=== PATIENT | female | born 1990 | race Caucasian/White ===

== ENCOUNTER 2023-04-05 17:01 | Outpatient (OUT) | payer BC, SELFPAY ==
--- NOTE | 2023-04-05 17:17 | US_ITS ---
[address] [address] Patient Name: REYNOLD QUEZADA MRN: [id number] date: 1990 Sex: F Assigned Patient Location: US Current Patient Location: Accession/Order Number: [id number] Exam Date: 04/05/2023 17:17 Report Date: 04/06/2023 15:08 At the request of: YAKOV ARNDT Procedure: US OB BPP w non-stress EXAMINATION: US OB BPP w non-stress HISTORY: Z03.75 SUSPECTED SHORTENING OF CERVIX NOT FOUND COMPARISON: No relevant comparison available. TECHNIQUE: Ultrasound biophysical profile was performed in the radiology department. BREATHING MOVEMENTS: 2.0 GROSS BODY MOVEMENTS: 2.0 TONE: 2.0 QUALITATIVE AMNIOTIC FLUID VOLUME: 2.0 PRESENTATION: BREECH HEART RATE: 165.6 bpm bpm. AMNIOTIC FLUID VOLUME: 10.0 cm GESTATIONAL AGE: 31 weeks 2 days CONCLUSION: Total biophysical profile score 8.0. Electronically authenticated by: MARY LOU AZAR Date: 04/06/2023 15:08
--- NOTE | 2023-04-05 17:18 | US_ITS ---
[address] [address] Patient Name: REYNOLD QUEZADA MRN: [id number] date: 1990 Sex: F Assigned Patient Location: US Current Patient Location: Accession/Order Number: [id number] Exam Date: 04/05/2023 17:17 Report Date: 04/06/2023 15:13 At the request of: YAKOV ARNDT Procedure: US OB growth EXAMINATION: US OB growth HISTORY: O23.849 SIZE INCONSISTENT WITH DATES COMPARISON: Ultrasound transvaginal 10/25/2022 FINDINGS: Heart Rate: 165.6 bpm Number: 1.0 Position: BREECH Amniotic Fluid Volume: 11.1 cm Maximum Vertical Pocket: 4.6 cm BIOMETRY: BPD: 8.0 cm cm; 32 weeks 2 days HC: 29.1 cmcm; 32 weeks 0 days AC: 27.2 cm cm; 31 weeks 2 days FL: 5.9 cm cm; 30 weeks 6 days EFW: 1742.1 grams; 39% FL/AC: 21.8 FL/BPD: 73.6 HC/AC: 1.1 GESTATIONAL AGE: Age by EDC: 31 weeks 2 days JUSTIN by EDC: 06/05/2023 Age by US: 31 weeks 4 days JUSTIN by US: 06/03/2023 IMPRESSION: 1. Single live intrauterine with growth detailed above. Electronically authenticated by: MARY LOU AZAR Date: 04/06/2023 15:13
[2023-04-05 18:10] VITALS: BP 112/70; PULSE 73; RESP 16; TEMP 36.9
== END 2023-04-05 18:52 | disposition home or self-care (01) ==
LOC: US 17:55 → FBC 17:58
PROVIDERS: PCP Internal Medicine; Visit Provider Obstetrics & Gynecology
DX: O26.843 Uterine size-date discrepancy, third trimester (principal); Z03.75 Encounter for suspected cervical shortening ruled out; Z3A.31 31 weeks gestation of pregnancy
CPT/HCPCS: 59025; 76816; 76818

== ENCOUNTER 2023-05-09 | Outpatient (REF) | payer BC, SELFPAY | END 2023-05-09 00:01 | disposition home or self-care (01) | LOC: LAB | PROVIDERS: PCP Internal Medicine; Visit Provider Physician Assistant | DX: Z34.93 Encounter for supervision of normal pregnancy, unspecified, third trimester (principal) | CPT/HCPCS: 87081 ==

== ENCOUNTER 2023-05-30 05:29 | Inpatient (IN) | payer BC, SELFPAY ==
[2023-05-30] VITALS (31 sets, daily range): BP systolic 110–144; BP diastolic 50–94; PULSE 58–75; RESP 16–24; TEMP 36.3–37.3; O2SAT 98–100
[2023-05-30] MEDS: 0.9 % SODIUM CHLORIDE 1,000 ML 1000 ML IV (05:58)
[2023-05-30 06:32] LABS: Basophils Absolute Auto 0.1 10^3/uL (0.0-0.1); Basophils Percent Auto 0.4 % (0.2-2.0); Eosinophils Absolute Auto 0.2 10^3/uL (0.0-0.7); Eosinophils Percent Auto 1.4 % (0.9-7.0); Hematocrit 34.1 % (36.0-48.0); Hemoglobin 10.7 g/dL (12.0-16.0); Immature Granulocytes Abs Auto 0.22 10^3/uL (0.00-0.03); Immature Granulocytes Pct Auto 1.7 % (0.0-0.5); Lymphocytes Percent Auto 15.1 % (20.5-60.0); Mean Corpuscular HGB Conc 31.4 g/dL (29.9-35.2); Mean Corpuscular Hemoglobin 20.9 pg (26.7-34.0); Mean Corpuscular Volume 66.7 fL (81.0-99.0); Monocytes Absolute Auto 1.1 10^3/uL (0.3-0.8); Monocytes Percent Auto 8.6 % (1.7-12.0); Neutrophils Absolute Auto 9.7 10^3/uL (1.4-6.5); Neutrophils Percent Auto 72.8 % (43.0-75.0); Platelet Count 263 10^3/uL (150-450); Red Blood Count 5.11 10^6/uL (4.20-5.40); Red Cell Distribution Width 17.5 % (11.0-15.0); White Blood Count 13.3 10^3/uL (4.0-11.0)
[2023-05-30 06:41] LABS: Amphetamine Screen Urine NEGATIVE (NEGATIVE); Barbiturates Screen Urine NEGATIVE (NEGATIVE); Benzodiazepines Screen Urine NEGATIVE (NEGATIVE); Buprenorphine Screen Urine NEGATIVE (NEGATIVE); Cannabinoid Screen Urine NEGATIVE (NEGATIVE); Cocaine Screen Urine NEGATIVE (NEGATIVE); Methadone Screen Urine NEGATIVE (NEGATIVE); Methamphetamines Screen Urine NEGATIVE (NEGATIVE); Opiate Screen Urine NEGATIVE (NEGATIVE); Oxycodone Screen Urine NEGATIVE (NEGATIVE); Phencyclidine Screen Urine NEGATIVE (NEGATIVE); Tricyclic Antidepressant Urine NEGATIVE (NEGATIVE)
[2023-05-30] MEDS: CEFAZOLIN SODIUM/DEXTROSE 2 GM/50 ML PIGGYBACK IV (06:56)
[2023-05-30] MEDS: 0.9 % SODIUM CHLORIDE 1,000 ML 125 ML IV ×2 (07:45→14:46)
--- NOTE | 2023-05-30 07:52 | W.PC.ACHO ---
Registration Status: ADM IN Primary Language: Kyrgyz Preferred Language: Kyrgyz Active Medications Generic Name Dose Route Start Last Admin Trade Name Freq PRN Reason Stop Dose Admin Sodium Chloride 1,000 mls @ 125 mls/hr 05/30/23 05:45 Sodium Chloride 0.9% 1,000 Ml IV .Q8H DAYAMI Consults Category Date Time Status Consult to Anesthesiology Routine Cons 05/30/23 Ordered IV Insertion/Site Date of IV Line Insertion [20g 05/30/23 left Hand] IV Insertion Time [20g left 05:45 Hand] Neurology Patient orientation (short person,place,time,situation list)
[2023-05-30] MEDS: LACTATED RINGER'S SOLUTION 1,000 ML 50 ML IV (08:14)
[2023-05-30] MEDS: ONDANSETRON PF 4 MG/2 ML VIAL IV (09:25)
[2023-05-30] MEDS: ONDANSETRON 4 MG RAPDIS TABLET PO (15:38)
[2023-05-30] MEDS: KETOROLAC TROMETHAMINE 30 MG/ML VIAL IVP ×2 (15:38→21:21)
[2023-05-30] MEDS: CEFAZOLIN SODIUM/DEXTROSE,ISO 2 GM/50 ML PIGGYBACK IV (15:39)
--- NOTE | 2023-05-30 16:31 | PC.NURSE ---
Powell cath dc'd at this time d/t adequste output and pt. up and ambulated without any issues at this time as well.
[2023-05-31] VITALS (8 sets, daily range): BP systolic 99–119; BP diastolic 58–72; PULSE 65–67; RESP 16; TEMP 36.6–37.1; O2SAT 98
[2023-05-31] MEDS: KETOROLAC TROMETHAMINE 30 MG/ML VIAL IVP (03:06)
[2023-05-31 06:41] LABS: Hematocrit 28.9 % (36.0-48.0); Mean Corpuscular HGB Conc 31.1 g/dL (29.9-35.2); Mean Corpuscular Hemoglobin 21.1 pg (26.7-34.0); Mean Corpuscular Volume 67.8 fL (81.0-99.0); Mean Platelet Volume 11.3 fL (9.5-13.5); Platelet Count 233 10^3/uL (150-450); Red Blood Count 4.26 10^6/uL (4.20-5.40); Red Cell Distribution Width 17.3 % (11.0-15.0); White Blood Count 15.2 10^3/uL (4.0-11.0)
--- NOTE | 2023-05-31 07:35 | W.PC.ACHO ---
Registration Status: ADM IN Primary Language: Andorran Preferred Language: Andorran Active Medications Generic Name Dose Route Start Last Admin Trade Name Freq PRN Reason Stop Dose Admin Al Hydroxide/Mg Hydroxide 2,400 mg 05/30/23 09:14 Magnesium Hydroxide 2,400 Mg/10 Ml Oral.Susp PO Q6H PRN Dyspepsia Docusate Sodium 100 mg 05/31/23 09:00 Docusate Sodium 100 Mg Capsule PO BID DAYAMI Sodium Chloride 1,000 mls @ 125 mls/hr 05/30/23 05:45 05/30/23 14:46 Sodium Chloride 0.9% 1,000 Ml IV 125 mls/hr .Q8H DAYAMI Administration Lactated Ringer's 1,000 mls @ 50 mls/hr 05/30/23 08:15 05/30/23 08:14 Lactated Ringers IV 50 mls/hr .Q20H DAYAMI Administration Ibuprofen 800 mg 05/30/23 09:14 Ibuprofen 400 Mg Tablet PO Q8H PRN Pain Ketorolac Tromethamine 30 mg 05/30/23 09:14 05/31/23 03:06 Ketorolac Tromethamine 30 Mg/Ml Vial IVP 06/01/23 09:15 30 mg Q6H PRN Administration Pain Ondansetron HCl 4 mg 05/30/23 09:14 05/30/23 09:25 Ondansetron Pf 4 Mg/2 Ml Vial IV 4 mg Q6H PRN Administration Nausea And Vomiting Ondansetron HCl 4 mg 05/30/23 09:14 05/30/23 15:38 Ondansetron 4 Mg Rapdis Tablet PO 4 mg Q6H PRN Administration Nausea And Vomiting Oxycodone/Acetaminophen 1 each 05/30/23 09:14 Oxycodone Hcl/Acetaminophen 5-325 Mg Tablet PO Q4H PRN Pain Oxycodone/Acetaminophen 2 each 05/30/23 09:14 Oxycodone Hcl/Acetaminophen 5-325 Mg Tablet PO Q4H PRN Pain Simethicone 80 mg 05/30/23 09:14 Simethicone 80 Mg Tab.Chew PO QID PRN Abdominal Distention Diet Category Date Time Status Regular Consistency Diet Diet 05/30/23 Lunch Active Respiratory Lung sounds [Throughout] clear Lung sounds [Throughout] clear Lung sounds [Throughout] clear Lung sounds [Throughout] clear Lung sounds [Throughout] clear Lung sounds [Throughout] clear Lung sounds [Throughout] clear Lung sounds [Throughout] clear Lung sounds [Throughout] clear Lung sounds [Throughout] clear Lung sounds [Throughout] clear Lung sounds [Throughout] clear Lung sounds [Throughout] clear Pulse Oximetry 98 Pulse Oximetry 100 Pulse Oximetry 100 Pulse Oximetry 100 Pulse Oximetry 100 Pulse Oximetry 100 Pulse Oximetry 100 Pulse Oximetry 100 Pulse Oximetry 98 Pulse Oximetry 99 Pulse Oximetry 99 Pulse Oximetry 100 Pulse Oximetry 98 Pulse Oximetry 99 Pulse Oximetry 100 Oxygen Delivery Method Room Air Oxygen Delivery Method Room Air Oxygen Delivery Method Room Air Oxygen Delivery Method Room Air Oxygen Delivery Method Room Air Oxygen Delivery Method Room Air Oxygen Delivery Method Room Air Oxygen Delivery Method Room Air Oxygen Delivery Method Room Air Oxygen Delivery Method Room Air Cardiology Heart Sounds Strong,Regular Heart Sounds Strong,Regular Heart Sounds Strong,Regular Heart Sounds Strong,Regular Heart Sounds Strong,Regular Heart Sounds Strong,Regular Catheter Urinary Catheter Date of 05/30/23 Insertion [Urethral] Urinary Catheter Date of 05/30/23 Insertion [Urethral] Urinary Catheter Date of 05/30/23 Insertion [Urethral]
[2023-05-31] MEDS: DOCUSATE SODIUM 100 MG CAPSULE PO ×2 (08:02→22:08)
[2023-05-31] MEDS: SIMETHICONE 80 MG TAB.CHEW PO ×2 (08:02→16:44)
--- NOTE | 2023-05-31 08:07 | P.OBPN_ITS ---
OB - PN: Subj Subjective Patient comments: no complaints [place] status: doing well feeding status: exclusively bottle feeding Exam Constitutional Vital Signs, click to edit/add: Last Vital Signs Temp 98.8 F 05/31/23 07:55 Pulse 66 05/31/23 07:52 Resp 16 05/31/23 07:52 BP 119/72 05/31/23 07:55 Pulse Ox 98 05/30/23 19:57 O2 Del Method Room Air 05/30/23 19:57 Eye General eye: normal appearance of both eyes Neck & C-Spine Common normals: full ROM Lymph Lymphatic: no lymphadenopathy noted Respiratory Common normals: normal respiratory effort and no retractions Effort & inspection: able to speak in complete sentences Auscultation: clear to auscultation bilaterally Cardio Common normals: regular rate, regular rhythm and no murmurs Rate: regular rate Rhythm: regular rhythm GI Common normals: Normal to inspection, nondistended, normoactive bowel sounds present Common normals: no CVA tenderness Back & Pelvis Common normals: no CVA tenderness Extremity Common normals: normal to inspection Neuro Common normals: oriented x3 Sensorium/orientation: awake, alert, oriented to person, oriented to place and oriented to time Psych Attitude: calm Results Labs Labs: Short CBC 05/31/23 Range/Units 06:30 WBC 15.2 H (4.0-11.0) 10^3/uL Hgb 9.0 L (12.0-16.0) g/dL Hct 28.9 L (36.0-48.0) % Plt Count 233 (150-450) 10^3/uL OB - PN: A/P Plan - day: 1 Plan: routine postop care Time Spent with Patient Time: Total time spent is greater than 50% in coordination of care (as documented) at patient's floor/unit and/or counseling patient: Total time spent with greater than 50% in coordination of care (as documented) at patient's floor/unit and/or counseling patient: less than 15 minutes
[2023-05-31] MEDS: IBUPROFEN 400 MG TABLET 800 MG PO ×2 (09:50→17:47)
--- NOTE | 2023-05-31 17:30 | W.PC.ACHO ---
Registration Status: ADM IN Primary Language: Faroese Preferred Language: Faroese report received from Aajy Ennis, RN Active Medications Generic Name Dose Route Start Last Admin Trade Name Freq PRN Reason Stop Dose Admin Al Hydroxide/Mg Hydroxide 2,400 mg 05/30/23 09:14 Magnesium Hydroxide 2,400 Mg/10 Ml Oral.Susp PO Q6H PRN Dyspepsia Docusate Sodium 100 mg 05/31/23 09:00 05/31/23 08:02 Docusate Sodium 100 Mg Capsule PO 100 mg BID DAYAMI Administration Sodium Chloride 1,000 mls @ 125 mls/hr 05/30/23 05:45 05/30/23 14:46 Sodium Chloride 0.9% 1,000 Ml IV 125 mls/hr .Q8H DAYAMI Administration Lactated Ringer's 1,000 mls @ 50 mls/hr 05/30/23 08:15 05/30/23 08:14 Lactated Ringers IV 50 mls/hr .Q20H DAYAMI Administration Ibuprofen 800 mg 05/30/23 09:14 05/31/23 09:50 Ibuprofen 400 Mg Tablet PO 800 mg Q8H PRN Administration Pain Ketorolac Tromethamine 30 mg 05/30/23 09:14 05/31/23 03:06 Ketorolac Tromethamine 30 Mg/Ml Vial IVP 06/01/23 09:15 30 mg Q6H PRN Administration Pain Ondansetron HCl 4 mg 05/30/23 09:14 05/30/23 09:25 Ondansetron Pf 4 Mg/2 Ml Vial IV 4 mg Q6H PRN Administration Nausea And Vomiting Ondansetron HCl 4 mg 05/30/23 09:14 05/30/23 15:38 Ondansetron 4 Mg Rapdis Tablet PO 4 mg Q6H PRN Administration Nausea And Vomiting Oxycodone/Acetaminophen 1 each 05/30/23 09:14 Oxycodone Hcl/Acetaminophen 5-325 Mg Tablet PO Q4H PRN Pain Oxycodone/Acetaminophen 2 each 05/30/23 09:14 Oxycodone Hcl/Acetaminophen 5-325 Mg Tablet PO Q4H PRN Pain Simethicone 80 mg 05/30/23 09:14 05/31/23 16:44 Simethicone 80 Mg Tab.Chew PO 80 mg QID PRN Administration Abdominal Distention Respiratory Lung sounds [Throughout] clear Lung sounds [Throughout] clear Lung sounds [Throughout] clear Lung sounds [Throughout] clear Lung sounds [Throughout] clear Pulse Oximetry 98 Oxygen Delivery Method Room Air Oxygen Delivery Method Room Air Oxygen Delivery Method Room Air Cardiology Heart Sounds Regular Heart Sounds Strong,Regular Renal Bladder Pattern Continent Bladder Pattern Continent
--- NOTE | 2023-05-31 19:18 | W.PC.ACHO ---
Registration Status: ADM IN Primary Language: Burmese Preferred Language: Burmese report given to Patricio Saunders RN Active Medications Generic Name Dose Route Start Last Admin Trade Name Freq PRN Reason Stop Dose Admin Al Hydroxide/Mg Hydroxide 2,400 mg 05/30/23 09:14 Magnesium Hydroxide 2,400 Mg/10 Ml Oral.Susp PO Q6H PRN Dyspepsia Docusate Sodium 100 mg 05/31/23 09:00 05/31/23 08:02 Docusate Sodium 100 Mg Capsule PO 100 mg BID DAYAMI Administration Sodium Chloride 1,000 mls @ 125 mls/hr 05/30/23 05:45 05/30/23 14:46 Sodium Chloride 0.9% 1,000 Ml IV 125 mls/hr .Q8H DAYAMI Administration Lactated Ringer's 1,000 mls @ 50 mls/hr 05/30/23 08:15 05/30/23 08:14 Lactated Ringers IV 50 mls/hr .Q20H DAYAMI Administration Ibuprofen 800 mg 05/30/23 09:14 05/31/23 17:47 Ibuprofen 400 Mg Tablet PO 800 mg Q8H PRN Administration Pain Ketorolac Tromethamine 30 mg 05/30/23 09:14 05/31/23 03:06 Ketorolac Tromethamine 30 Mg/Ml Vial IVP 06/01/23 09:15 30 mg Q6H PRN Administration Pain Ondansetron HCl 4 mg 05/30/23 09:14 05/30/23 09:25 Ondansetron Pf 4 Mg/2 Ml Vial IV 4 mg Q6H PRN Administration Nausea And Vomiting Ondansetron HCl 4 mg 05/30/23 09:14 05/30/23 15:38 Ondansetron 4 Mg Rapdis Tablet PO 4 mg Q6H PRN Administration Nausea And Vomiting Oxycodone/Acetaminophen 1 each 05/30/23 09:14 Oxycodone Hcl/Acetaminophen 5-325 Mg Tablet PO Q4H PRN Pain Oxycodone/Acetaminophen 2 each 05/30/23 09:14 Oxycodone Hcl/Acetaminophen 5-325 Mg Tablet PO Q4H PRN Pain Simethicone 80 mg 05/30/23 09:14 05/31/23 16:44 Simethicone 80 Mg Tab.Chew PO 80 mg QID PRN Administration Abdominal Distention Respiratory Lung sounds [Throughout] clear Lung sounds [Throughout] clear Lung sounds [Throughout] clear Lung sounds [Throughout] clear Lung sounds [Throughout] clear Pulse Oximetry 98 Oxygen Delivery Method Room Air Oxygen Delivery Method Room Air Oxygen Delivery Method Room Air Cardiology Heart Sounds Regular Heart Sounds Strong,Regular Renal Bladder Pattern Continent Bladder Pattern Continent
--- NOTE | 2023-05-31 19:30 | W.PC.ACHO ---
Registration Status: ADM IN Primary Language: Slovak Preferred Language: Slovak Active Medications report received at 1915. Generic Name Dose Route Start Last Admin Trade Name Freq PRN Reason Stop Dose Admin Al Hydroxide/Mg Hydroxide 2,400 mg 05/30/23 09:14 Magnesium Hydroxide 2,400 Mg/10 Ml Oral.Susp PO Q6H PRN Dyspepsia Docusate Sodium 100 mg 05/31/23 09:00 05/31/23 08:02 Docusate Sodium 100 Mg Capsule PO 100 mg BID DAYAMI Administration Sodium Chloride 1,000 mls @ 125 mls/hr 05/30/23 05:45 05/30/23 14:46 Sodium Chloride 0.9% 1,000 Ml IV 125 mls/hr .Q8H DAYAMI Administration Lactated Ringer's 1,000 mls @ 50 mls/hr 05/30/23 08:15 05/30/23 08:14 Lactated Ringers IV 50 mls/hr .Q20H DAYAMI Administration Ibuprofen 800 mg 05/30/23 09:14 05/31/23 17:47 Ibuprofen 400 Mg Tablet PO 800 mg Q8H PRN Administration Pain Ketorolac Tromethamine 30 mg 05/30/23 09:14 05/31/23 03:06 Ketorolac Tromethamine 30 Mg/Ml Vial IVP 06/01/23 09:15 30 mg Q6H PRN Administration Pain Ondansetron HCl 4 mg 05/30/23 09:14 05/30/23 09:25 Ondansetron Pf 4 Mg/2 Ml Vial IV 4 mg Q6H PRN Administration Nausea And Vomiting Ondansetron HCl 4 mg 05/30/23 09:14 05/30/23 15:38 Ondansetron 4 Mg Rapdis Tablet PO 4 mg Q6H PRN Administration Nausea And Vomiting Oxycodone/Acetaminophen 1 each 05/30/23 09:14 Oxycodone Hcl/Acetaminophen 5-325 Mg Tablet PO Q4H PRN Pain Oxycodone/Acetaminophen 2 each 05/30/23 09:14 Oxycodone Hcl/Acetaminophen 5-325 Mg Tablet PO Q4H PRN Pain Simethicone 80 mg 05/30/23 09:14 05/31/23 16:44 Simethicone 80 Mg Tab.Chew PO 80 mg QID PRN Administration Abdominal Distention Respiratory Lung sounds [Throughout] clear Lung sounds [Throughout] clear Lung sounds [Throughout] clear Lung sounds [Throughout] clear Lung sounds [Throughout] clear Pulse Oximetry 98 Oxygen Delivery Method Room Air Oxygen Delivery Method Room Air Oxygen Delivery Method Room Air Cardiology Heart Sounds Regular Heart Sounds Strong,Regular Renal Bladder Pattern Continent Bladder Pattern Continent
[2023-06-01 00:45] VITALS: RESP 14; TEMP 36.6
[2023-06-01 00:47] VITALS: BP 117/77
[2023-06-01] MEDS: IBUPROFEN 400 MG TABLET 800 MG PO ×2 (01:35→10:04)
--- NOTE | 2023-06-01 07:44 | W.PC.ACHO ---
Registration Status: ADM IN Primary Language: [place] Preferred Language: [place] report received from Patricio Saunders RN Active Medications Generic Name Dose Route Start Last Admin Trade Name Freq PRN Reason Stop Dose Admin Al Hydroxide/Mg Hydroxide 2,400 mg 05/30/23 09:14 Magnesium Hydroxide 2,400 Mg/10 Ml Oral.Susp PO Q6H PRN Dyspepsia Docusate Sodium 100 mg 05/31/23 09:00 05/31/23 22:08 Docusate Sodium 100 Mg Capsule PO 100 mg BID DAYAMI Administration Sodium Chloride 1,000 mls @ 125 mls/hr 05/30/23 05:45 05/30/23 14:46 Sodium Chloride 0.9% 1,000 Ml IV 125 mls/hr .Q8H DAYAMI Administration Lactated Ringer's 1,000 mls @ 50 mls/hr 05/30/23 08:15 05/30/23 08:14 Lactated Ringers IV 50 mls/hr .Q20H DAYAMI Administration Ibuprofen 800 mg 05/30/23 09:14 06/01/23 01:35 Ibuprofen 400 Mg Tablet PO 800 mg Q8H PRN Administration Pain Ketorolac Tromethamine 30 mg 05/30/23 09:14 05/31/23 03:06 Ketorolac Tromethamine 30 Mg/Ml Vial IVP 06/01/23 09:15 30 mg Q6H PRN Administration Pain Ondansetron HCl 4 mg 05/30/23 09:14 05/30/23 09:25 Ondansetron Pf 4 Mg/2 Ml Vial IV 4 mg Q6H PRN Administration Nausea And Vomiting Ondansetron HCl 4 mg 05/30/23 09:14 05/30/23 15:38 Ondansetron 4 Mg Rapdis Tablet PO 4 mg Q6H PRN Administration Nausea And Vomiting Oxycodone/Acetaminophen 1 each 05/30/23 09:14 Oxycodone Hcl/Acetaminophen 5-325 Mg Tablet PO Q4H PRN Pain Oxycodone/Acetaminophen 2 each 05/30/23 09:14 Oxycodone Hcl/Acetaminophen 5-325 Mg Tablet PO Q4H PRN Pain Simethicone 80 mg 05/30/23 09:14 05/31/23 16:44 Simethicone 80 Mg Tab.Chew PO 80 mg QID PRN Administration Abdominal Distention Respiratory Lung sounds [Throughout] clear Lung sounds [Throughout] clear Lung sounds [Throughout] clear Lung sounds [Throughout] clear Pulse Oximetry 98 Pulse Oximetry 98 Oxygen Delivery Method Room Air Oxygen Delivery Method Room Air Oxygen Delivery Method Room Air Oxygen Delivery Method Room Air Oxygen Delivery Method Room Air Cardiology Heart Sounds Regular Heart Sounds Strong,Regular Bowels Date of Last Bowel Movement 06/01/23 Renal Bladder Pattern Continent Bladder Pattern Continent Bladder Pattern Continent
[2023-06-01 08:15] VITALS: BP 119/74; PULSE 71; RESP 18; TEMP 36.9
[2023-06-01 08:16] VITALS: BP 119/74; PULSE 71
[2023-06-01] MEDS: DOCUSATE SODIUM 100 MG CAPSULE PO (08:20)
--- NOTE | 2023-06-01 08:32 | P.OBPN_ITS ---
OB - PN: Subj Subjective Patient comments: no complaints [place] status: doing well Exam Narrative Exam Narrative: doing well, patient does want to go home today Constitutional Vital Signs, click to edit/add: Last Vital Signs Temp 98.4 F 06/01/23 08:15 Pulse 71 06/01/23 08:16 Resp 18 06/01/23 08:15 BP 119/74 06/01/23 08:16 Pulse Ox 98 05/31/23 21:35 O2 Del Method Room Air 06/01/23 08:15 Documenting provider has reviewed patient's vital signs: yes Common normals: no apparent distress General appearance: cooperative and comfortable Orientation/consciousness: Yes awake, Yes oriented to person, Yes oriented to place and Yes oriented to time Neck & C-Spine Common normals: full ROM Lymph Lymphatic: no lymphadenopathy noted Respiratory Common normals: normal respiratory effort Auscultation: clear to auscultation bilaterally Cardio Common normals: regular rate, regular rhythm and no murmurs Rhythm: regular rhythm GI Common normals: Normal to inspection, nondistended, normoactive bowel sounds present Auscultation: normoactive bowel sounds Palpation: soft Common normals: no CVA tenderness Back & Pelvis Common normals: no CVA tenderness Extremity Common normals: normal to inspection Neuro Common normals: oriented x3 Sensorium/orientation: awake, alert, oriented to person, oriented to place and oriented to time Psych Attitude: calm OB - PN: A/P Plan - day: 2 Plan: discharge home Time Spent with Patient Time: Total time spent is greater than 50% in coordination of care (as documented) at patient's floor/unit and/or counseling patient: Total time spent with greater than 50% in coordination of care (as documented) at patient's floor/unit and/or counseling patient: less than 15 minutes
[2023-06-01 08:33] VITALS: RESP 18
--- NOTE | 2023-06-01 10:58 | PC.NURSE ---
parents watch mother and baby care video, 7 steps video and care video. RN educates parents that videos are available at home on their phone with the resources sent home with discharge folder.
[2023-06-01 11:33] VITALS: O2SAT 98
--- NOTE | 2023-06-16 | DS_ITS ---
DISCHARGE DATE: ??06/16/2023 PRIMARY DIAGNOSES: 1.? Intrauterine at 39 weeks. 2.? Breech presentation. PROCEDURE:? Primary low transverse section. HOSPITAL COURSE:? As expected.? Please see chart for full details.? LABORATORY DATA:? Please see chart. COMPLICATIONS:? None. DISCHARGE CONDITION:? Stable. CONSULTATION:? Anesthesia. DISCHARGE INSTRUCTIONS: 1.? Diet:? Regular. 2.? Medications: a.? Percocet 5/325 one to two p.o. every 4-6 hours p.r.n. pain. b.? Motrin 800 one p.o. every 8 hours p.r.n. pain. 3.? Followup in one week. Restrictions:? Pelvic rest for 6 weeks.? No heavy lifting.? May drive when pain free and no longer on narcotics. [place]
--- NOTE | 2023-06-16 12:39 | P.ON_ITS ---
Brief Operative Note Date of procedure: 05/30/23 Pre-op diagnosis: iup at 39wks, breech Post-op diagnosis: same as pre-op Procedure: NAME OF PROCEDURE: [ section ] PROCEDURE: Patient was taken back to the Operating Room where she was given a spinal anesthesia with Duramorph without difficulty. She was prepped and draped in the normal sterile fashion. A Pfannenstiel skin incision was then made 2 cm above the symphysis pubis and carried down to underlying rectus fascia using a Bovie. The fascia was incised in the midline and extended laterally using Hickman scissors. Two Dawna clamps were placed on the superior aspect of the fascia and dissected off the underlying rectus muscles. The same was performed on the inferior aspect as well. The muscles were then in the midline. Peritoneum was identified and entered bluntly. The peritoneum was then extended superiorly and inferiorly with good visualization of the bladder. The bladder blade was inserted. A low transverse incision was made on the patient's uterus a nd extended laterally digitally. The infant was then delivered atraumatically after the bladder blade was removed in the breech position. The cord was clamped and cut. Cord blood was obtained. The was handed off to awaiting team. The patient's placenta was spontaneously delivered. The uterus was then exteriorized. The uterus was cleared of all clots and debris. The bladder blade was reinserted. The patient's uterine incision was closed using #0 Vicryl in a running lock fashion. Excellent hemostasis was assured. The uterus was then returned to the patient's abdomen. The patient's abdomen was copiously irrigated using warm saline. Peritoneal gutters were cleared of all clots and debris. Again excellent hemostasis was assured. The patient's peritoneum was closed using 3-0 Vicryl in a running fashion. The patient's fascia was closed using #0 Vicryl in a running fashion. The patient's skin was closed using 4-0 Vicryl subcuticularly. The patient tolerated the procedure well. Sponge, lap, and needle counts were correct x2. The patient was taken to the Recovery Room in stable condition. Anesthesia: GINAA Surgeon: Kristian Lucas [employer] Other Ranks: Nedra Nathan Estimated blood loss (mL): 575 Pathology: other (placenta) Condition: stable Disposition: PACU
--- NOTE | 2023-06-16 12:42 | PM.OBPRCCS ---
Procedure Pre-op/Post-op diagnoses: Pre-Op/Post-Op Diagnoses Operation Date: 05/30/23 07:30 <No data on this case meets the specified criteria> Procedure: Procedures Operation Date: 05/30/23 07:30 Actual Procedure Side Surgeon p Not Applicable Kristian Lucas DO Sales Representative Consultant: Nedra Nathan Estimated blood loss (mL): 575 Disposition: PACU Anesthesia type: Spinal
== END 2023-06-01 11:43 | disposition home or self-care (01) | DRG 788 ==
PROVIDERS: Admitting Provider Obstetrics & Gynecology; PCP Internal Medicine; Visit Provider Obstetrics & Gynecology
PROC: 10D00Z1 Extraction of Products of Conception, Low, Open Approach (ICD-10-PCS; CPT 59514; principal; 2023-05-30 07:30)
DX: O32.1XX0 Maternal care for breech presentation, not applicable or unspecified (principal); Z37.0 Single live birth; Z3A.39 39 weeks gestation of pregnancy
CPT/HCPCS: 36415; 59050; 80307; 85025; 85027; 86850; 86900; 86901; 94667; 94668; 94761; 96374; 96376